=== PATIENT | male | born 1960 | race Caucasian/White ===

== ENCOUNTER 2018-03-21 05:08 | Inpatient (IN) | payer OTHER, MEDICARE ==
[~2018-03-21] VITALS: Ht 165.1 cm; Wt 72.4 kg
[2018-03-21] VITALS (12 sets, daily range): BP systolic 155–172; BP diastolic 74–86; PULSE 86–107; RESP 10–24; TEMP 98.8–99.7; O2SAT 98–100
[2018-03-21] MEDS ORDERED: DIPHTH/TETANUS/ACEL PERTUSSIS (BOOSTER) 0.5 ML VIAL/PFS IM ONE ×2 (05:11→05:14)
[2018-03-21] MEDS ORDERED: ceFAZolin 2 GM in NS 100 ML IV ONE (05:11)
[2018-03-21 05:26] LABS: AUTOMATED NEUTROPHIL # 5.6 TH/MM3 (1.8-7.7); BASOPHIL # 0.1 TH/MM3 (0-0.2); BASOPHIL % 0.8 % (0.0-2.0); EOSINOPHIL # 0.5 TH/MM3 (0-0.4); EOSINOPHIL % 4.8 % (0.0-4.0); HEMATOCRIT 35.8 % (39.0-51.0); HEMOGLOBIN 11.9 GM/DL (13.0-17.0); LYMPH % 26.6 % (9.0-44.0); LYMPHOCYTE # 2.5 TH/MM3 (1.0-4.8); MEAN CELL VOLUME 89.6 FL (80.0-100.0); MEAN CORPUSCULAR HEMOGLOBIN 29.7 PG (27.0-34.0); MEAN CORPUSCULAR HGB CONC 33.1 % (32.0-36.0); MEAN PLATELET VOLUME 7.5 FL (7.0-11.0); MONOCYTE # 0.7 TH/MM3 (0-0.9); NEUT % 59.8 % (16.0-70.0); PLATELET COUNT 217 TH/MM3 (150-450); RED BLOOD COUNT 3.99 MIL/MM3 (4.50-5.90); RED CELL DISTRIBUTION WIDTH 13.8 % (11.6-17.2); WHITE BLOOD COUNT 9.3 TH/MM3 (4.0-11.0)
[2018-03-21 05:37] LABS: INTERNATIONAL NORMALIZED RATIO 1.1 RATIO; PROTHROMBIN TIME - PATIENT 11.5 SEC (9.8-11.6)
[2018-03-21] MEDS ORDERED: IOHEXOL 350 MG/ML 10 ML VIAL (for RAD DIAG) IVCONTRAST ONE (05:44)
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
[2018-03-21] MEDS ORDERED: HYDROmorphone HCL PF 2 MG/ML VIAL IV PUSH ONE (06:45)
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
[2018-03-21] MEDS: SODIUM CHLOR 0.9% 1000 ML INJ 1,000 ML IV SCH ×5 (07:00→16:45)
[2018-03-21] MEDS ORDERED: NURSING INFORMATION XX SCH (08:15)
[2018-03-21] MEDS ORDERED: CHLORHEXIDINE GLUCONATE 2 % 1 PACK (2 CLOTHS) TOP PRN (08:15)
[2018-03-21] MEDS ORDERED: ONDANSETRON ODT 4 MG TAB PO PRN (08:15)
[2018-03-21] MEDS ORDERED: ENALAPRILAT 1.25 MG/ML VIAL IV PUSH PRN (08:15)
[2018-03-21] MEDS ORDERED: ACETAMINOPHEN 325 MG TAB PO PRN (08:15)
[2018-03-21] MEDS: MORPHINE SULFATE 4 MG/ML INJ IV PUSH PRN ×3 (08:45→21:35)
[2018-03-21] MEDS: PANTOPRAZOLE SODIUM 40 MG VIAL IVP SCH (09:00)
[2018-03-21] MEDS: BACITRACIN TOP OINT 15 GM TUBE TOP SCH ×2 (09:00→20:53)
[2018-03-21] MEDS: DOCUSATE SODIUM 50 MG/SENNA 8.6 MG TAB PO SCH ×2 (09:00→19:31)
[2018-03-21] MEDS: DEXT 5%-NACL 0.9% 1000 ML INJ 1,000 ML IV SCH ×3 (09:05→14:54)
[2018-03-21] MEDS ORDERED: GENTAMICIN SULFATE 80 MG/2 ML VIAL ONE (09:13)
[2018-03-21] MEDS ORDERED: POTASSIUM CHLOR 40 MEQ PREMIX 100 ML IV PRN ×2 (09:15)
[2018-03-21] MEDS ORDERED: INSULIN HUMAN REGULAR 1,000 UNITS/10 ML VIAL IV PUSH ONE (09:15)
[2018-03-21] MEDS ORDERED: SODIUM BICARBONATE 8.4% SOLN 50 MEQ/50 ML VIAL IV PUSH PRN ×2 (09:15)
[2018-03-21] MEDS ORDERED: SODIUM PHOSPHATE INJ 15 MMOL in SODIUM CHLORIDE 0.9% INJ 100 ML IV PRN (09:15)
[2018-03-21] MEDS ORDERED: INSULIN REGULAR (IV INFUSION) 100 UNITS in SODIUM CHLORIDE 0.9% INJ 99 ML IV PRN (09:15)
[2018-03-21] MEDS ORDERED: POTASSIUM CHLOR 20 MEQ PREMIX 100 ML IV PRN ×6 (09:15)
[2018-03-21] MEDS ORDERED: INSULIN REGULAR 100 UNITS in NS 100 ML IV SCH (09:30)
[2018-03-21] MEDS ORDERED: ceFAZolin INJ 1,000 MG VIAL ONE (09:45)
[2018-03-21] MEDS ORDERED: VANCOMYCIN HCL 1000 MG VIAL ONE (09:45)
[2018-03-21] MEDS: INSULIN REGULAR (IV INFUSION) 100 UNITS in SODIUM CHLORIDE 0.9% INJ 99 ML IV PRN ×2 (09:45→10:45)
[2018-03-21] MEDS ORDERED: SODIUM CHLOR 0.9% 250 ML INJ 250 ML ONE (09:45)
[2018-03-21] MEDS ORDERED: *morphine SULFATE 4 MG/ML PERIprocedure ONLY ONE ×2 (10:38→11:28)
--- NOTE | 2018-03-21 11:17 | PD.ORT.PN ---
Subjective Subjective Remarks Patient is in PACU and blood sugars are over 600. He is in extreme risk for surgery and anesthesia feels that he may not survive surgery with his unstable sugars. He has skin tenting in the long leg splint. We will re-splint to relieve pressure from the skin. We will plan on surgery this weekend with Dr. Melton Objective Vitals Vital Signs Date Time Temp Pulse Resp B/P (MAP) Pulse Ox O2 Delivery O2 Flow Rate FiO2 03/21/18 10:28 100 Room Air 03/21/18 10:21 99 03/21/18 08:13 03/21/18 07:29 106 22 157/81 (106) 98 Room Air 03/21/18 06:49 106 20 159/82 (107) 98 Room Air 03/21/18 05:55 98 18 172/86 (114) 100 Nasal Cannula 2.00 03/21/18 05:50 100 Nasal Cannula 2.00 I/O 03/20/18 03/20/18 03/20/18 03/21/18 03/21/18 03/21/18 07:00 15:00 23:00 07:00 15:00 23:00 Intake Total 100 ml 2000 ml Output Total 300 ml Balance 100 ml 1700 ml Intake IV Total 100 ml 2000 ml Output Urine Total 300 ml Result Diagram: 03/21/18509 Other Results Laboratory Tests Test 03/21/18 05:10 Prothromb Time International Ratio 1.1 RATIO Prothrombin Time 11.5 SEC (9.8-11.6) Imaging Last 24 hours Impressions Pelvis X-Ray 03/21/18510 Signed Impressions: Service Date/Time: Wednesday, March 21, 2018 05:08 - CONCLUSION: Questionable left superior pubic ramus fracture. Joe Roldan Jr., MD Maxillofacial CT 03/21/18510 Signed Impressions: Service Date/Time: Wednesday, March 21, 2018 05:20 - CONCLUSION: 1. Multiple fractures involve the nasal bones, nasal septum, and maxillary structures as detailed above. Joe Roldan Jr., MD Head CT 03/21/18510 Signed Impressions: Service Date/Time: Wednesday, March 21, 2018 05:20 - CONCLUSION: 1. See the CT of the facial bones reported separately. 2. No acute intracranial abnormality. Joe Roldan Jr., MD Chest X-Ray 03/21/18510 Signed Impressions: Service Date/Time: Wednesday, March 21, 2018 05:08 - CONCLUSION: Normal examination. Joe Roldan Jr., MD Chest CT 03/21/18 0511 Signed Impressions: Service Date/Time: Wednesday, March 21, 2018 05:31 - CONCLUSION: 1. Left-sided rib fractures. No pneumothorax. 2. No acute intrathoracic abnormality. Joe Roldan Jr., MD Cervical Spine CT 03/21/18 05 Signed Impressions: Service Date/Time: Wednesday, March 21, 2018 05:20 - CONCLUSION: 1. No fracture or dislocation. 2. Disc osteophyte complex at C5-C6 causing central canal narrowing and neural foraminal narrowing. Joe Roldan Jr., MD Abdomen/Pelvis CT 03/21/18 0511 Signed Impressions: Service Date/Time: Wednesday, March 21, 2018 05:31 - CONCLUSION: 1. See the CT of the thorax dictated separately. 2. No acute abnormality involving the abdomen or pelvis. 3. No pelvic fracture observed. Joe Roldan Jr., MD Tibia/Fibula X-Ray 03/21/18 0000 Signed Impressions: Service Date/Time: Wednesday, March 21, 2018 05:08 - CONCLUSION: Fractures of the tibia and fibula as detailed above. Joe Roldan Jr., MD Objective Remarks Left lower extremity: Skin is intact with skin tenting. He has intact sensation distally and is able to move all his toes appropriately. Compartments are soft and has intact distal pulses Assessment & Plan Assessment and Plan 1) Left Distal Tib/Fib Fx - Due to significant elevated blood sugars and risks with surgery surgery will be postponed today. With anesthesia's assistance patient was given propofol and has light sedation. He is resplinted with a posterior and sugar tong splint. Postreduction x-rays were ordered. He will continue to be nonweightbearing and will plan on surgery either Saturday or Saturday with Dr. Melton. N.p.o. after midnight Nonweightbearing left lower extremity Rohith Infante Jr. March 21, 2018 11:17
[2018-03-21 11:27] LABS: BILIRUBIN, URINE NEG (NEG); BLOOD, URINE NEG (NEG); GLUCOSE,URINE 1000 mg/dL (NEG); KETONE, URINE NEG (NEG); NITRITE,URINE NEG (NEG); PH, URINE 6.5 (5.0-8.5); URINE COLOR LIGHT-YELLOW (YELLW/STRAW); URINE LEUKOCYTE ESTERASE NEG (NEG)
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
--- NOTE | 2018-03-21 12:30 | RADRPT ---
EXAM DATE/TIME: 03/21/2018 12:02 [facility] COMPARISON: TIBIA/FIBULA LEFT (AP/LAT), March 21, 2018, 5:08. INDICATIONS : Post reduction. MEDICAL HISTORY : Non-responsive. SURGICAL HISTORY : Non-responsive. ENCOUNTER: Subsequent ACUITY: 1 day PAIN SCORE: 8/10 LOCATION: Left Tibfib. FINDINGS: Two view examination of the left tibia is obtained status post reduction. There is continued displace ment of the midshaft of the fibula and distal fibula. There is persistent displacement of the distal tibia fracture. Patient is within a splint. CONCLUSION: Continued displacement of the fibula/tibial fractures. Arturo Jorgensen MD on March 21, 2018 at 12:28 Board Certified Radiologist. This report was verified electronically.
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
[2018-03-21 13:25] LABS: ALBUMIN 3.1 GM/DL (3.4-5.0); ALKALINE PHOSPHATASE 197 U/L (45-117); AST (GOT) 120 U/L (15-37); BLOOD UREA NITROGEN 11 MG/DL (7-18); CREATININE 1.07 MG/DL (0.60-1.30); GLOMERULAR FILTRATION RATE 71 ML/MIN (>89); GLUCOSE,RANDOM 289 MG/DL (74-106); MAGNESIUM 1.8 MG/DL (1.5-2.5); TOTAL PROTEIN 5.9 GM/DL (6.4-8.2)
[2018-03-21 13:26] LABS: ALT (GPT) 94 U/L (12-78); BICARBONATE 24.6 MEQ/L (21.0-32.0); CHLORIDE 111 MEQ/L (98-107); SODIUM (NA) 145 MEQ/L (136-145); TOTAL BILIRUBIN ADULT 0.2 MG/DL (0.2-1.0)
[2018-03-21 16:14] LABS: BICARBONATE 24.8 MEQ/L (21.0-32.0); CALCIUM 7.8 MG/DL (8.5-10.1); CREATININE 0.79 MG/DL (0.60-1.30); MAGNESIUM 1.9 MG/DL (1.5-2.5); PHOSPHORUS 2.2 MG/DL (2.5-4.9)
[2018-03-21] MEDS ORDERED: PLEASE DISCONTINUE PREVIOUS SUPPLEMENTAL SCALE INSULIN ORDERS ONE (16:45)
[2018-03-21] MEDS: MEDIUM DOSE INSULIN NOVOLOG SUPPLEMENTAL SCALE SQ SCH ×2 (17:00→20:53)
[2018-03-21] MEDS ORDERED: GLUCAGON 1 MG/ML VIAL OTHER PRN (17:00)
[2018-03-21] MEDS ORDERED: DEXTROSE 50% IN WATER 50 ML VIAL(D50) IV PUSH PRN (17:00)
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
[2018-03-22] VITALS (8 sets, daily range): BP systolic 153–171; BP diastolic 74–81; PULSE 82–98; RESP 13–23; TEMP 98.1–100; O2SAT 96–100
[2018-03-22] MEDS: SODIUM CHLOR 0.9% 1000 ML INJ 1,000 ML IV SCH ×2 (03:35→17:55)
[2018-03-22] MEDS ORDERED: CHLORHEXIDINE GLUCONATE 2 % 1 PACK (2 CLOTHS) TOP SCH (04:00)
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
[2018-03-22 05:33] LABS: AUTOMATED NEUTROPHIL # 6.2 TH/MM3 (1.8-7.7); BASOPHIL % 0.5 % (0.0-2.0); EOSINOPHIL # 0.2 TH/MM3 (0-0.4); HEMATOCRIT 32.4 % (39.0-51.0); HEMOGLOBIN 11.2 GM/DL (13.0-17.0); LYMPH % 15.3 % (9.0-44.0); LYMPHOCYTE # 1.3 TH/MM3 (1.0-4.8); MEAN CORPUSCULAR HEMOGLOBIN 30.1 PG (27.0-34.0); MEAN CORPUSCULAR HGB CONC 34.6 % (32.0-36.0); MEAN PLATELET VOLUME 7.8 FL (7.0-11.0); MONO % 11.2 % (0.0-8.0); PLATELET COUNT 176 TH/MM3 (150-450); RED BLOOD COUNT 3.72 MIL/MM3 (4.50-5.90); RED CELL DISTRIBUTION WIDTH 13.9 % (11.6-17.2); WHITE BLOOD COUNT 8.7 TH/MM3 (4.0-11.0)
[2018-03-22 05:55] LABS: BICARBONATE 23.8 MEQ/L (21.0-32.0); CALCIUM 7.9 MG/DL (8.5-10.1); CREATININE 0.71 MG/DL (0.60-1.30); MAGNESIUM 1.7 MG/DL (1.5-2.5)
[2018-03-22 05:56] LABS: PHOSPHORUS 2.2 MG/DL (2.5-4.9)
[2018-03-22] MEDS: MEDIUM DOSE INSULIN NOVOLOG SUPPLEMENTAL SCALE SQ SCH ×4 (08:00→20:06)
[2018-03-22] MEDS: PANTOPRAZOLE SODIUM 40 MG VIAL IVP SCH (08:09)
[2018-03-22] MEDS ORDERED: VANCOMYCIN HCL 1000 MG VIAL ONE (08:40)
[2018-03-22] MEDS ORDERED: ceFAZolin INJ 1,000 MG VIAL ONE (08:40)
[2018-03-22] MEDS ORDERED: GENTAMICIN SULFATE 80 MG/2 ML VIAL ONE (08:41)
[2018-03-22] MEDS ORDERED: SODIUM CHLOR 0.9% 250 ML INJ 250 ML ONE (08:41)
[2018-03-22] MEDS: BACITRACIN TOP OINT 15 GM TUBE TOP SCH ×2 (09:00→20:07)
[2018-03-22] MEDS: DOCUSATE SODIUM 50 MG/SENNA 8.6 MG TAB PO SCH ×2 (09:00→19:51)
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
--- NOTE | 2018-03-22 11:15 | PD.OP ---
Operative Report Preoperative Diagnosis: (1) Closed fracture of shaft of left tibia and fibula Postoperative Diagnosis: (1) Closed fracture of shaft of left tibia and fibula Procedure: Left Tibia IM Rodding and Fibula Shaft ORIF with Plate and Screws Anesthesia: General Surgeon: Dipak Melton MD Water Jet Operator(s): Pete MCDOWELL Operation and Findings: see dictation Dipak Melton MD March 22, 2018 11:15
[2018-03-22] MEDS ORDERED: *morphine SULFATE 4 MG/ML PERIprocedure ONLY ONE ×2 (11:40→12:09)
[2018-03-22] MEDS ORDERED: *MEPERIDINE 25 MG INJ VIAL PERIprocedural Use ONLY ONE (11:44)
[2018-03-22] MEDS ORDERED: DO NOT ADM ANY ANTICOAGULANT DRUGS PRN (11:45)
[2018-03-22] MEDS ORDERED: LIDOCAINE HCL 1% PF 5 ML SYRINGE OTHER ONE (12:00)
[2018-03-22] MEDS ORDERED: DEXAMETHASONE SOD PHOS 4 MG/ML VIAL IV ONE (12:00)
[2018-03-22] MEDS ORDERED: PHENYLEPH/NS 1000 MCG/10 ML SYR IV ONE (12:00)
[2018-03-22] MEDS ORDERED: ONDANSETRON HCL 4 MG/2 ML VIAL IV PUSH ONE (12:00)
[2018-03-22] MEDS ORDERED: PROPOFOL 200 MG/20 ML AMP IV ONE (12:00)
[2018-03-22] MEDS ORDERED: ROCURONIUM INJ 50 MG/5 ML SYRINGE IV PUSH ONE (12:00)
[2018-03-22] MEDS ORDERED: GLYCOPYRROLATE 1 MG/5 ML SYRINGE IV PUSH ONE (12:00)
[2018-03-22] MEDS ORDERED: NEOSTIGMINE 5 MG/5 ML SYRINGE IV PUSH ONE (12:00)
[2018-03-22] MEDS ORDERED: LACTATED RINGER'S 1000 ML INJ 1,000 ML IV ONE (12:00)
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
--- NOTE | 2018-03-22 13:44 | EKG ---
Date Performed: 03/21/2018 Time Performed: 22:20:25 PTAGE: 57 years EKG: Sinus rhythm NORMAL ECG NO PREVIOUS TRACING DOCTOR: Emmett Hernández Interpretating Date/Time 03/22/2018 13:42:15
[2018-03-22] MEDS: MORPHINE SULFATE 4 MG/ML INJ IV PUSH PRN ×3 (14:14→21:09)
[2018-03-22] MEDS ORDERED: POTASSIUM PHOSPHATE MONOBASIC 500 MG TAB PO ONE (15:00)
[2018-03-22] MEDS ORDERED: ENALAPRILAT 2.5 MG/2 ML VIAL IV PUSH PRN (15:15)
--- NOTE | 2018-03-22 15:26 | RADRPT ---
EXAM DATE/TIME: 03/22/2018 10:43 [facility] COMPARISON: TIBIA/FIBULA LEFT (AP/LAT), March 21, 2018, 12:02. INDICATIONS : ORIF left tib/fib. MEDICAL HISTORY : Unobtainable. SURGICAL HISTORY : Unobtainable. ENCOUNTER: Initial ACUITY: 1 day PAIN SCORE: Non-responsive. LOCATION: Left Tib/fib. FINDINGS: Intramedullary sae and screw fixation of the distal comminuted tibial fracture. Hardware appears well -positioned with near-anatomic alignment. There has also been plate and screw fixation of the distal fibula. CONCLUSION: 1. Left tibial and fibular fixation, as above. Lefty Daniel MD on March 22, 2018 at 15:23 Board Certified Radiologist. This report was verified electronically.
[2018-03-22] MEDS: POLYETHYLENE GLYCOL 17 GM PKG PO SCH (15:30)
[2018-03-22] MEDS: LIDOCAINE HCL 5% PATCH T-DERMAL SCH (15:56)
[2018-03-22] MEDS: METHOCARBAMOL 500 MG TAB PO SCH ×2 (15:56→21:09)
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
[2018-03-22] MEDS: ENOXAPARIN SODIUM 30 MG/0.3 ML SYRINGE SQ SCH (17:54)
[2018-03-22] MEDS ORDERED: METF500T PO (19:36)
[2018-03-22] MEDS ORDERED: ADDE30TA PO (19:36)
[2018-03-22] MEDS ORDERED: METH10TA PO (19:36)
[2018-03-22] MEDS ORDERED: PERI PO (20:04)
[2018-03-22] MEDS: RESP: ALBUTEROL 2.5 MG/IPRATROPIUM 0.5 MG NEB (SCH) NEB (20:24)
[2018-03-22] MEDS ORDERED: HYDROmorphone HCL PF 0.5 MG/0.5 ML SYRINGE IV ONE (23:30)
[2018-03-23] VITALS (9 sets, daily range): BP systolic 133–166; BP diastolic 70–86; PULSE 95–110; RESP 18–20; TEMP 98.1–100.4; O2SAT 96–99
[2018-03-23] MEDS: MORPHINE SULFATE 4 MG/ML INJ IV PUSH PRN ×5 (01:38→17:35)
[2018-03-23] MEDS: ENOXAPARIN SODIUM 30 MG/0.3 ML SYRINGE SQ SCH ×2 (04:50→17:00)
[2018-03-23] MEDS: METHOCARBAMOL 500 MG TAB PO SCH ×3 (06:04→21:31)
[2018-03-23] MEDS: SODIUM CHLOR 0.9% 1000 ML INJ 1,000 ML IV SCH ×2 (06:15→18:45)
--- NOTE | 2018-03-23 06:46 | RADRPT ---
EXAM DATE/TIME: 03/23/2018 06:04 [facility] COMPARISON: CT THORAX W CONTRAST, March 21, 2018, 5:31. INDICATIONS : Pulmonary contusion. MEDICAL HISTORY : None. SURGICAL HISTORY : None. ENCOUNTER: Subsequent ACUITY: 1 day PAIN SCORE: Non-responsive. LOCATION: Bilateral chest FINDINGS: A single view of the chest demonstrates the lungs to be symmetrically aerated without evidence of mas s, infiltrate or effusion. The cardiomediastinal contours are unremarkable. CONCLUSION: 1. No active disease. Eric Bajwa MD on March 23, 2018 at 6:44 Board Certified Radiologist. This report was verified electronically.
[2018-03-23 07:14] LABS: BICARBONATE 20.4 MEQ/L (21.0-32.0); CALCIUM 7.9 MG/DL (8.5-10.1); CREATININE 0.72 MG/DL (0.60-1.30)
[2018-03-23 07:23] LABS: BASOPHIL % 0.2 % (0.0-2.0); EOSINOPHIL % 0.3 % (0.0-4.0); HEMATOCRIT 28.6 % (39.0-51.0); HEMOGLOBIN 9.7 GM/DL (13.0-17.0); LYMPH % 11.7 % (9.0-44.0); LYMPHOCYTE # 1.4 TH/MM3 (1.0-4.8); MEAN CELL VOLUME 88.2 FL (80.0-100.0); MEAN CORPUSCULAR HEMOGLOBIN 29.8 PG (27.0-34.0); MEAN CORPUSCULAR HGB CONC 33.8 % (32.0-36.0); MONO % 12.4 % (0.0-8.0); MONOCYTE # 1.5 TH/MM3 (0-0.9); NEUT % 75.4 % (16.0-70.0); PLATELET COUNT 165 TH/MM3 (150-450); RED BLOOD COUNT 3.25 MIL/MM3 (4.50-5.90); RED CELL DISTRIBUTION WIDTH 13.7 % (11.6-17.2)
[2018-03-23] MEDS: POLYETHYLENE GLYCOL 17 GM PKG PO SCH (08:01)
[2018-03-23] MEDS: LIDOCAINE HCL 5% PATCH T-DERMAL SCH (08:02)
[2018-03-23] MEDS: BACITRACIN TOP OINT 15 GM TUBE TOP SCH ×2 (08:02→21:31)
[2018-03-23] MEDS: RESP: ALBUTEROL 2.5 MG/IPRATROPIUM 0.5 MG NEB (SCH) NEB ×4 (08:07→19:43)
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
[2018-03-23] MEDS: MEDIUM DOSE INSULIN NOVOLOG SUPPLEMENTAL SCALE SQ SCH ×4 (08:14→21:30)
[2018-03-23] MEDS: DOCUSATE SODIUM 50 MG/SENNA 8.6 MG TAB PO SCH ×2 (08:14→21:29)
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
[2018-03-23] MEDS ORDERED: ENOXAPARIN SODIUM 30 MG/0.3 ML SYRINGE SQ SCH (09:00)
[2018-03-23] MEDS: INSULIN DETEMIR 100 UNITS/ML VIAL SQ SCH ×2 (09:00→21:30)
[2018-03-23] MEDS: GABAPENTIN 300 MG CAP PO SCH ×3 (10:00→17:00)
--- NOTE | 2018-03-23 11:50 | PD.ORT.PN ---
Subjective Subjective Remarks Patient c/o LLE pain. PT at bedside. Objective Vitals Vital Signs Date Time Temp Pulse Resp B/P (MAP) Pulse Ox O2 Delivery O2 Flow Rate FiO2 03/23/18 08:07 97 21 03/23/18 08:00 98.6 106 20 160/86 (110) 98 03/23/18 04:55 18 03/23/18 04:47 18 03/23/18 03:40 99.4 108 18 166/85 (112) 99 03/23/18 00:00 100.4 110 18 159/79 (105) 97 03/22/18 20:30 96 Nasal Cannula 2.00 03/22/18 20:12 Nasal Cannula 2.00 03/22/18 20:00 99.7 98 18 153/77 (102) 100 03/22/18 16:00 98.1 90 20 171/81 (111) 98 03/22/18 12:30 97.8 84 20 159/83 (108) 94 Nasal Cannula 2 03/22/18 12:15 88 20 158/84 (108) 96 Nasal Cannula 2 03/22/18 12:00 82 20 157/80 (105) 96 Nasal Cannula 2 I/O 03/22/18 03/22/18 03/22/18 03/23/18 03/23/18 03/23/18 07:00 15:00 23:00 07:00 15:00 23:00 Intake Total 120 ml 1200 ml 1000 ml 360 ml Output Total 1300 ml 900 ml 1050 ml 1575 ml Balance -1180 ml 300 ml -50 ml -1215 ml Intake Oral 120 ml 360 ml IV Total 1000 ml Other 1200 ml Output Urine Total 1300 ml 850 ml 1050 ml 1575 ml Estimated Blood Loss 50 ml # Bowel Movements 0 0 Result Diagram: 03/23/18 0500 03/23/18 0500 Imaging Last 24 hours Impressions Pelvis X-Ray 03/21/18510 Signed Impressions: Service Date/Time: Wednesday, March 21, 2018 05:08 - CONCLUSION: Questionable left superior pubic ramus fracture. Joe Roldan Jr., MD Maxillofacial CT 03/21/18510 Signed Impressions: Service Date/Time: Wednesday, March 21, 2018 05:20 - CONCLUSION: 1. Multiple fractures involve the nasal bones, nasal septum, and maxillary structures as detailed above. Joe Roldan Jr., MD Head CT 03/21/18510 Signed Impressions: Service Date/Time: Wednesday, March 21, 2018 05:20 - CONCLUSION: 1. See the CT of the facial bones reported separately. 2. No acute intracranial abnormality. Joe Roldan Jr., MD Chest X-Ray 03/21/18510 Signed Impressions: Service Date/Time: Wednesday, March 21, 2018 05:08 - CONCLUSION: Normal examination. Joe Roldan Jr., MD Chest CT 03/21/18510 Signed Impressions: Service Date/Time: Wednesday, March 21, 2018 05:31 - CONCLUSION: 1. Left-sided rib fractures. No pneumothorax. 2. No acute intrathoracic abnormality. Joe Roldan Jr., MD Cervical Spine CT 03/21/18510 Signed Impressions: Service Date/Time: Wednesday, March 21, 2018 05:20 - CONCLUSION: 1. No fracture or dislocation. 2. Disc osteophyte complex at C5-C6 causing central canal narrowing and neural foraminal narrowing. Joe Roldan Jr., MD Abdomen/Pelvis CT 03/21/18510 Signed Impressions: Service Date/Time: Wednesday, March 21, 2018 05:31 - CONCLUSION: 1. See the CT of the thorax dictated separately. 2. No acute abnormality involving the abdomen or pelvis. 3. No pelvic fracture observed. Joe Roldan Jr., MD Tibia/Fibula X-Ray 03/21/18 0000 Signed Impressions: Service Date/Time: Wednesday, March 21, 2018 05:08 - CONCLUSION: Fractures of the tibia and fibula as detailed above. Joe Roldan Jr., MD Objective Remarks Left lower extremity: splint intact C/D/I good movement of toes +sensation Assessment & Plan Assessment and Plan POD #1 Left Tibia IM Rodding and Left Fibula ORIF Pain management Physical therapy - TTWB Splint in place D/C planning - anticipating SNF Monitor Pete Lorenzo March 23, 2018 11:50
[2018-03-23] MEDS ORDERED: PILL SPLITTER OTHER PRN (12:30)
[2018-03-23] MEDS: LISINOPRIL 5 MG TAB PO SCH (14:09)
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
[2018-03-23] MEDS: FAMOTIDINE 20 MG TAB PO SCH (21:29)
[2018-03-24] MEDS: MORPHINE SULFATE 4 MG/ML INJ IV PUSH PRN ×3 (01:35→16:03)
[2018-03-24 03:00] VITALS: BP 160/75; PULSE 100; RESP 19; TEMP 99; O2SAT 98
[2018-03-24] MEDS: METHOCARBAMOL 500 MG TAB PO SCH ×3 (05:40→21:43)
[2018-03-24] MEDS: ENOXAPARIN SODIUM 30 MG/0.3 ML SYRINGE SQ SCH ×2 (05:41→16:03)
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
[2018-03-24] MEDS: RESP: ALBUTEROL 2.5 MG/IPRATROPIUM 0.5 MG NEB (SCH) NEB ×4 (07:41→19:38)
[2018-03-24 08:00] VITALS: BP 165/83; PULSE 95; RESP 19; TEMP 99; O2SAT 98
[2018-03-24] MEDS ORDERED: METHADONE HCL 10 MG TAB PO SCH (09:00)
[2018-03-24] MEDS: INSULIN DETEMIR 100 UNITS/ML VIAL SQ SCH ×2 (09:00→21:46)
[2018-03-24] MEDS: FAMOTIDINE 20 MG TAB PO SCH ×2 (10:01→20:18)
[2018-03-24] MEDS: GABAPENTIN 300 MG CAP PO SCH ×3 (10:01→16:02)
[2018-03-24] MEDS: DOCUSATE SODIUM 50 MG/SENNA 8.6 MG TAB PO SCH ×2 (10:01→20:18)
[2018-03-24] MEDS: LISINOPRIL 5 MG TAB PO SCH (10:02)
[2018-03-24] MEDS: LIDOCAINE HCL 5% PATCH T-DERMAL SCH (10:03)
[2018-03-24] MEDS: POLYETHYLENE GLYCOL 17 GM PKG PO SCH (10:03)
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
[2018-03-24 12:00] VITALS: BP 147/79; PULSE 99; RESP 19; TEMP 97.6; O2SAT 97
[2018-03-24] MEDS: MEDIUM DOSE INSULIN NOVOLOG SUPPLEMENTAL SCALE SQ SCH ×4 (12:00→21:00)
[2018-03-24] MEDS: BACITRACIN TOP OINT 15 GM TUBE TOP SCH ×2 (12:34→20:20)
--- NOTE | 2018-03-24 13:04 | PD.ORT.PN ---
Subjective Subjective Remarks Patient comfortalbe Objective Vitals Vital Signs Date Time Temp Pulse Resp B/P (MAP) Pulse Ox O2 Delivery O2 Flow Rate FiO2 03/24/18 08:00 99.0 95 19 165/83 (110) 98 03/24/18 03:00 99.0 100 19 160/75 (103) 98 03/23/18 23:10 100.2 101 20 137/70 (92) 97 03/23/18 19:46 96 21 03/23/18 19:28 99.3 100 18 146/76 (99) 96 03/23/18 16:00 98.1 95 18 133/73 (93) 98 I/O 03/23/18 03/23/18 03/23/18 03/24/18 03/24/18 03/24/18 07:00 15:00 23:00 07:00 15:00 23:00 Intake Total 360 ml 456 ml 1180 ml 360 ml Output Total 1575 ml 2250 ml 1000 ml Balance -1215 ml 456 ml -1070 ml -640 ml Intake Oral 360 ml 1180 ml 360 ml IV Total 456 ml Output Urine Total 1575 ml 2250 ml 1000 ml # Bowel Movements 0 0 0 Result Diagram: 03/23/18 0500 03/23/18 0500 Imaging Last 24 hours Impressions Pelvis X-Ray 03/21/18510 Signed Impressions: Service Date/Time: Wednesday, March 21, 2018 05:08 - CONCLUSION: Questionable left superior pubic ramus fracture. Joe Roldan Jr., MD Maxillofacial CT 03/21/18510 Signed Impressions: Service Date/Time: Wednesday, March 21, 2018 05:20 - CONCLUSION: 1. Multiple fractures involve the nasal bones, nasal septum, and maxillary structures as detailed above. Joe Roldan Jr., MD Head CT 03/21/18510 Signed Impressions: Service Date/Time: Wednesday, March 21, 2018 05:20 - CONCLUSION: 1. See the CT of the facial bones reported separately. 2. No acute intracranial abnormality. Joe Roldan Jr., MD Chest X-Ray 03/21/18510 Signed Impressions: Service Date/Time: Wednesday, March 21, 2018 05:08 - CONCLUSION: Normal examination. Joe Roldan Jr., MD Chest CT 03/21/18510 Signed Impressions: Service Date/Time: Wednesday, March 21, 2018 05:31 - CONCLUSION: 1. Left-sided rib fractures. No pneumothorax. 2. No acute intrathoracic abnormality. Joe Roldan Jr., MD Cervical Spine CT 03/21/18 0511 Signed Impressions: Service Date/Time: Wednesday, March 21, 2018 05:20 - CONCLUSION: 1. No fracture or dislocation. 2. Disc osteophyte complex at C5-C6 causing central canal narrowing and neural foraminal narrowing. Joe Roladn Jr., MD Abdomen/Pelvis CT 03/21/18 05 Signed Impressions: Service Date/Time: Wednesday, March 21, 2018 05:31 - CONCLUSION: 1. See the CT of the thorax dictated separately. 2. No acute abnormality involving the abdomen or pelvis. 3. No pelvic fracture observed. Joe Roldan Jr., MD Tibia/Fibula X-Ray 03/21/18 0000 Signed Impressions: Service Date/Time: Wednesday, March 21, 2018 05:08 - CONCLUSION: Fractures of the tibia and fibula as detailed above. Joe Roldan Jr., MD Objective Remarks Left lower extremity: splint intact C/D/I good movement of toes +sensation Assessment & Plan Assessment and Plan POD #2 Left Tibia IM Rodding and Left Fibula ORIF Pain management Physical therapy - TTWB Splint in place D/C planning - anticipating SNF F/U with nurse practitioner in 2 weeks Monitor Dipak Melton MD March 24, 2018 13:04
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
[2018-03-24 16:00] VITALS: BP 129/69; PULSE 101; RESP 18; TEMP 99.4; O2SAT 97
[2018-03-24 19:39] VITALS: O2SAT 97
[2018-03-24 19:46] VITALS: BP 135/67; PULSE 93; RESP 18; TEMP 98.6; O2SAT 99
[2018-03-25 00:15] VITALS: BP 145/82; PULSE 90; RESP 17; TEMP 97.3; O2SAT 97
[2018-03-25 04:00] LABS: AUTOMATED NEUTROPHIL # 5.2 TH/MM3 (1.8-7.7); BASOPHIL % 0.6 % (0.0-2.0); EOSINOPHIL # 0.3 TH/MM3 (0-0.4); EOSINOPHIL % 3.8 % (0.0-4.0); HEMATOCRIT 28.5 % (39.0-51.0); HEMOGLOBIN 9.5 GM/DL (13.0-17.0); LYMPH % 17.8 % (9.0-44.0); LYMPHOCYTE # 1.4 TH/MM3 (1.0-4.8); MEAN CORPUSCULAR HGB CONC 33.3 % (32.0-36.0); MEAN PLATELET VOLUME 7.1 FL (7.0-11.0); MONO % 12.4 % (0.0-8.0); NEUT % 65.4 % (16.0-70.0); PLATELET COUNT 279 TH/MM3 (150-450); RED BLOOD COUNT 3.28 MIL/MM3 (4.50-5.90); RED CELL DISTRIBUTION WIDTH 13.6 % (11.6-17.2); WHITE BLOOD COUNT 7.9 TH/MM3 (4.0-11.0)
[2018-03-25 04:24] LABS: ALBUMIN 2.4 GM/DL (3.4-5.0); AST (GOT) 15 U/L (15-37); BICARBONATE 28.7 MEQ/L (21.0-32.0); BLOOD UREA NITROGEN 16 MG/DL (7-18); CALCIUM 8.5 MG/DL (8.5-10.1); CHLORIDE 103 MEQ/L (98-107); CREATININE 0.74 MG/DL (0.60-1.30); GLOMERULAR FILTRATION RATE 108 ML/MIN (>89); GLUCOSE,RANDOM 147 MG/DL (74-106); SODIUM (NA) 141 MEQ/L (136-145)
[2018-03-25 04:27] LABS: ALKALINE PHOSPHATASE 139 U/L (45-117); ALT (GPT) 36 U/L (12-78); TOTAL BILIRUBIN ADULT 0.4 MG/DL (0.2-1.0); TOTAL PROTEIN 6.1 GM/DL (6.4-8.2)
[2018-03-25] MEDS: METHOCARBAMOL 500 MG TAB PO SCH ×3 (06:00→21:07)
[2018-03-25] MEDS: ENOXAPARIN SODIUM 30 MG/0.3 ML SYRINGE SQ SCH ×2 (06:01→16:33)
[2018-03-25 07:39] VITALS: O2SAT 97
[2018-03-25] MEDS: RESP: ALBUTEROL 2.5 MG/IPRATROPIUM 0.5 MG NEB (SCH) NEB ×4 (07:41→19:24)
[2018-03-25 08:00] VITALS: BP 157/72; PULSE 93; RESP 19; TEMP 98.4; O2SAT 95
[2018-03-25] MEDS: MEDIUM DOSE INSULIN NOVOLOG SUPPLEMENTAL SCALE SQ SCH ×4 (08:00→21:00)
[2018-03-25] MEDS ORDERED: POTASSIUM CHLORIDE 20 MEQ CONTROLLED RELEASE TAB PO ONE (08:00)
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
[2018-03-25] MEDS: BACITRACIN TOP OINT 15 GM TUBE TOP SCH ×2 (09:00→21:07)
[2018-03-25] MEDS: POLYETHYLENE GLYCOL 17 GM PKG PO SCH (09:00)
[2018-03-25] MEDS: DOCUSATE SODIUM 50 MG/SENNA 8.6 MG TAB PO SCH ×2 (10:10→21:06)
[2018-03-25] MEDS: LISINOPRIL 5 MG TAB PO SCH (10:10)
[2018-03-25] MEDS: GABAPENTIN 300 MG CAP PO SCH ×3 (10:10→16:33)
[2018-03-25] MEDS: FAMOTIDINE 20 MG TAB PO SCH ×2 (10:10→21:06)
[2018-03-25] MEDS: MORPHINE SULFATE 4 MG/ML INJ IV PUSH PRN (10:12)
[2018-03-25] MEDS: LIDOCAINE HCL 5% PATCH T-DERMAL SCH (10:13)
[2018-03-25] MEDS: INSULIN DETEMIR 100 UNITS/ML VIAL SQ SCH ×2 (10:14→21:06)
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
[2018-03-25] MEDS ORDERED: LACTULOSE SYRUP 20 GM/30 ML CUP PO SCH (11:45)
[2018-03-25 12:00] VITALS: BP 138/73; PULSE 89; RESP 19; TEMP 98.1; O2SAT 97
[2018-03-25] MEDS: METHADONE HCL 10 MG TAB PO SCH (12:51)
[2018-03-25 15:36] VITALS: O2SAT 98
[2018-03-25] MEDS ORDERED: POTASSIUM CHLORIDE 10 MEQ CAP PO ONE (16:00)
--- NOTE | 2018-03-25 18:43 | PD.ORT.PN ---
Subjective Subjective Remarks Patient comfortalbe Objective Vitals Vital Signs Date Time Temp Pulse Resp B/P (MAP) Pulse Ox O2 Delivery O2 Flow Rate FiO2 03/25/18 15:36 98 21 03/25/18 12:00 98.1 89 19 138/73 (94) 97 03/25/18 08:00 98.4 93 19 157/72 (100) 95 03/25/18 07:39 97 21 03/25/18 00:15 97.3 90 17 145/82 (103) 97 03/24/18 19:46 98.6 93 18 135/67 (89) 99 03/24/18 19:39 97 I/O 03/24/18 03/24/18 03/24/18 03/25/18 03/25/18 03/25/18 07:00 15:00 23:00 07:00 15:00 23:00 Intake Total 360 ml 480 ml Output Total 1000 ml 2530 ml Balance -640 ml -2050 ml Intake Oral 360 ml 480 ml Output Urine Total 1000 ml 2530 ml # Voids 3 # Bowel Movements 0 1 0 Result Diagram: 03/25/18 0320 03/25/18 0320 Imaging Last 24 hours Impressions Pelvis X-Ray 03/21/18510 Signed Impressions: Service Date/Time: Wednesday, March 21, 2018 05:08 - CONCLUSION: Questionable left superior pubic ramus fracture. Joe Roldan Jr., MD Maxillofacial CT 03/21/18510 Signed Impressions: Service Date/Time: Wednesday, March 21, 2018 05:20 - CONCLUSION: 1. Multiple fractures involve the nasal bones, nasal septum, and maxillary structures as detailed above. Joe Roldan Jr., MD Head CT 03/21/18510 Signed Impressions: Service Date/Time: Wednesday, March 21, 2018 05:20 - CONCLUSION: 1. See the CT of the facial bones reported separately. 2. No acute intracranial abnormality. Joe Roldan Jr., MD Chest X-Ray 03/21/18510 Signed Impressions: Service Date/Time: Wednesday, March 21, 2018 05:08 - CONCLUSION: Normal examination. Joe Roldan Jr., MD Chest CT 03/21/18510 Signed Impressions: Service Date/Time: Wednesday, March 21, 2018 05:31 - CONCLUSION: 1. Left-sided rib fractures. No pneumothorax. 2. No acute intrathoracic abnormality. Joe Roldan Jr., MD Cervical Spine CT 03/21/18 0511 Signed Impressions: Service Date/Time: Wednesday, March 21, 2018 05:20 - CONCLUSION: 1. No fracture or dislocation. 2. Disc osteophyte complex at C5-C6 causing central canal narrowing and neural foraminal narrowing. Joe Roldan Jr., MD Abdomen/Pelvis CT 03/21/18 05 Signed Impressions: Service Date/Time: Wednesday, March 21, 2018 05:31 - CONCLUSION: 1. See the CT of the thorax dictated separately. 2. No acute abnormality involving the abdomen or pelvis. 3. No pelvic fracture observed. Joe Roldan Jr., MD Tibia/Fibula X-Ray 03/21/18 0000 Signed Impressions: Service Date/Time: Wednesday, March 21, 2018 05:08 - CONCLUSION: Fractures of the tibia and fibula as detailed above. Joe Roldan Jr., MD Objective Remarks Left lower extremity: splint intact C/D/I good movement of toes +sensation Assessment & Plan Assessment and Plan POD #3 Left Tibia IM Rodding and Left Fibula ORIF Pain management Physical therapy - TTWB Splint in place D/C planning - anticipating SNF F/U with nurse practitioner in 2 weeks Monitor Dipak Melton MD March 25, 2018 18:43
[2018-03-25 20:00] VITALS: BP 118/58; PULSE 92; RESP 20; TEMP 98.4; O2SAT 95
[2018-03-25] MEDS: MAGNESIUM HYDROXIDE SUSP 30 ML CUP PO SCH (21:06)
[2018-03-25] MEDS: SODIUM CHLORIDE 0.9% FLUSH 10 ML FLUSH IV FLUSH PRN (21:07)
[2018-03-26] VITALS: BP 128/74; PULSE 87; RESP 20; TEMP 99.3; O2SAT 96
[2018-03-26] MEDS: ENOXAPARIN SODIUM 30 MG/0.3 ML SYRINGE SQ SCH ×2 (05:26→18:03)
[2018-03-26] MEDS: METHOCARBAMOL 500 MG TAB PO SCH ×3 (05:26→21:20)
[2018-03-26] MEDS: RESP: ALBUTEROL 2.5 MG/IPRATROPIUM 0.5 MG NEB (SCH) NEB ×2 (07:42→11:19)
[2018-03-26 07:44] VITALS: O2SAT 98
[2018-03-26 08:00] VITALS: BP 158/82; PULSE 83; RESP 17; TEMP 98.2; O2SAT 96
[2018-03-26] MEDS: FAMOTIDINE 20 MG TAB PO SCH ×2 (08:33→21:20)
[2018-03-26] MEDS: POLYETHYLENE GLYCOL 17 GM PKG PO SCH (08:34)
[2018-03-26] MEDS: INSULIN DETEMIR 100 UNITS/ML VIAL SQ SCH (08:34)
[2018-03-26] MEDS: DOCUSATE SODIUM 50 MG/SENNA 8.6 MG TAB PO SCH ×2 (08:34→21:20)
[2018-03-26] MEDS: GABAPENTIN 300 MG CAP PO SCH ×3 (08:34→18:03)
[2018-03-26] MEDS: METHADONE HCL 10 MG TAB PO SCH (08:34)
[2018-03-26] MEDS: MAGNESIUM HYDROXIDE SUSP 30 ML CUP PO SCH ×2 (08:35→21:20)
[2018-03-26] MEDS: LISINOPRIL 5 MG TAB PO SCH (08:55)
[2018-03-26] MEDS: MEDIUM DOSE INSULIN NOVOLOG SUPPLEMENTAL SCALE SQ SCH ×4 (08:55→21:00)
[2018-03-26] MEDS: BACITRACIN TOP OINT 15 GM TUBE TOP SCH ×2 (08:56→21:21)
[2018-03-26] MEDS: LIDOCAINE HCL 5% PATCH T-DERMAL SCH (08:56)
[2018-03-26 11:55] VITALS: BP 118/58; PULSE 94; RESP 17; TEMP 98.3; O2SAT 97
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
[2018-03-26] MEDS ORDERED: LIDO1ADH4 T-DERMAL (12:32)
[2018-03-26] MEDS ORDERED: METH500T3 PO (12:32)
[2018-03-26] MEDS ORDERED: NOVO7030P2 SQ (12:32)
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
[2018-03-26] MEDS ORDERED: WALKER WHEELS/F1 MIS (12:34)
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
[2018-03-26 16:00] VITALS: BP 107/56; PULSE 95; RESP 17; TEMP 98.3; O2SAT 96
[2018-03-26] MEDS: INSULIN HUMAN NPH/R 70/30 1,000 UNITS/10 ML VIAL SQ SCH (18:12)
[2018-03-26 20:00] VITALS: BP 106/55; PULSE 100; RESP 20; TEMP 98.3; O2SAT 98
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
[2018-03-26] MEDS ORDERED: WHEEMIS3 (22:12)
[2018-03-27] VITALS (8 sets, daily range): BP systolic 103–143; BP diastolic 57–69; PULSE 74–86; RESP 18–20; TEMP 97.5–98.8; O2SAT 96–98
[2018-03-27] MEDS: ENOXAPARIN SODIUM 30 MG/0.3 ML SYRINGE SQ SCH (04:17)
[2018-03-27] MEDS: METHOCARBAMOL 500 MG TAB PO SCH ×3 (05:08→21:01)
[2018-03-27] MEDS: INSULIN HUMAN NPH/R 70/30 1,000 UNITS/10 ML VIAL SQ SCH ×2 (08:00→17:00)
[2018-03-27] MEDS: MEDIUM DOSE INSULIN NOVOLOG SUPPLEMENTAL SCALE SQ SCH ×4 (08:00→21:02)
[2018-03-27] MEDS: METHADONE HCL 10 MG TAB PO SCH (08:32)
[2018-03-27] MEDS: LIDOCAINE HCL 5% PATCH T-DERMAL SCH (08:33)
[2018-03-27] MEDS: BACITRACIN TOP OINT 15 GM TUBE TOP SCH ×2 (08:33→13:23)
[2018-03-27] MEDS: POLYETHYLENE GLYCOL 17 GM PKG PO SCH (08:43)
[2018-03-27] MEDS: MAGNESIUM HYDROXIDE SUSP 30 ML CUP PO SCH ×2 (08:43→21:00)
[2018-03-27] MEDS: GABAPENTIN 300 MG CAP PO SCH ×3 (09:00→18:09)
[2018-03-27] MEDS: FAMOTIDINE 20 MG TAB PO SCH ×2 (09:00→21:01)
[2018-03-27] MEDS: DOCUSATE SODIUM 50 MG/SENNA 8.6 MG TAB PO SCH ×2 (09:00→21:00)
[2018-03-27] MEDS ORDERED: POTASSIUM CHLORIDE 10 MEQ CONTROLLED RELEASE TAB PO ONE (09:00)
[2018-03-27] MEDS: LISINOPRIL 5 MG TAB PO SCH (09:00)
[2018-03-27] MEDS ORDERED: ACETAMINOPHEN 1000 MG/100 ML 100 ML IV ONE (11:31)
[2018-03-27] MEDS ORDERED: LIDOCAINE 1%/EPINEPHrine 1:100,000 SOLN 20 ML VIAL ONE (11:50)
[2018-03-27] MEDS ORDERED: BUPIVACAINE/EPINEPHRINE 0.75% PF 30 ML VIAL ONE (11:56)
[2018-03-27] MEDS ORDERED: MUPIROCIN 2% OINT 22 GM TUBE ONE (11:57)
[2018-03-27] MEDS ORDERED: OXYMETAZOLINE HCL 0.05% 15 ML NASAL SPRAY ONE (11:57)
[2018-03-27] MEDS ORDERED: INSULIN HUMAN REGULAR 1,000 UNITS/10 ML VIAL ONE (12:17)
[2018-03-27] MEDS ORDERED: ceFAZolin INJ 1,000 MG VIAL IV ONE ×2 (12:47→17:41)
[2018-03-27] MEDS ORDERED: DO NOT ADM ANY ANTICOAGULANT DRUGS PRN (13:13)
[2018-03-27] MEDS ORDERED: MIDAZOLAM HCL 2 MG/2 ML VIAL ONE (13:18)
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
[2018-03-27] MEDS ORDERED: DEXAMETHASONE SOD PHOS 4 MG/ML VIAL IV ONE (17:41)
[2018-03-27] MEDS ORDERED: LIDOCAINE HCL 1% PF 5 ML SYRINGE OTHER ONE (17:41)
[2018-03-27] MEDS ORDERED: PHENYLEPH/NS 1000 MCG/10 ML SYR IV ONE (17:41)
[2018-03-27] MEDS ORDERED: ePHEDrine/NS 25 MG/5 ML SYRINGE IV ONE (17:41)
[2018-03-27] MEDS ORDERED: GLYCOPYRROLATE 1 MG/5 ML SYRINGE IV PUSH ONE (17:41)
[2018-03-27] MEDS ORDERED: NEOSTIGMINE 5 MG/5 ML SYRINGE IV PUSH ONE (17:41)
[2018-03-27] MEDS ORDERED: ROCURONIUM INJ 50 MG/5 ML SYRINGE IV PUSH ONE (17:41)
[2018-03-27] MEDS ORDERED: ONDANSETRON HCL 4 MG/2 ML VIAL IV PUSH ONE (17:41)
[2018-03-27] MEDS ORDERED: PROPOFOL 200 MG/20 ML AMP IV ONE (17:41)
[2018-03-27] MEDS: ceFAZolin 2 GM/DEX PREMIX 50 ML IV SCH (18:09)
[2018-03-27] MEDS: MORPHINE SULFATE 4 MG/ML INJ IV PUSH PRN (23:39)
[2018-03-27] MEDS: SODIUM CHLORIDE 0.9% FLUSH 10 ML FLUSH IV FLUSH PRN (23:40)
[2018-03-28] MEDS: MORPHINE SULFATE 4 MG/ML INJ IV PUSH PRN (00:01)
[2018-03-28] MEDS: SODIUM CHLORIDE 0.9% FLUSH 10 ML FLUSH IV FLUSH PRN (00:01)
[2018-03-28] MEDS: ceFAZolin 2 GM/DEX PREMIX 50 ML IV SCH ×2 (00:27→09:11)
[2018-03-28 03:50] VITALS: BP 118/57; PULSE 76; RESP 18; TEMP 98.2; O2SAT 96
[2018-03-28] MEDS: METHOCARBAMOL 500 MG TAB PO SCH ×2 (05:28→14:14)
[2018-03-28 08:00] VITALS: BP 123/57; PULSE 70; RESP 18; TEMP 98.2; O2SAT 98
[2018-03-28] MEDS ORDERED: INSULIN HUMAN NPH/R 70/30 1,000 UNITS/10 ML VIAL SQ SCH (08:00)
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
[2018-03-28] MEDS: POLYETHYLENE GLYCOL 17 GM PKG PO SCH (09:00)
[2018-03-28] MEDS: LIDOCAINE HCL 5% PATCH T-DERMAL SCH (09:00)
[2018-03-28] MEDS: BACITRACIN TOP OINT 15 GM TUBE TOP SCH (09:00)
[2018-03-28] MEDS: MAGNESIUM HYDROXIDE SUSP 30 ML CUP PO SCH (09:00)
[2018-03-28] MEDS: MEDIUM DOSE INSULIN NOVOLOG SUPPLEMENTAL SCALE SQ SCH ×2 (09:10→12:00)
[2018-03-28] MEDS: METHADONE HCL 10 MG TAB PO SCH (09:12)
[2018-03-28] MEDS: GABAPENTIN 300 MG CAP PO SCH ×2 (09:12→14:14)
[2018-03-28] MEDS: LISINOPRIL 5 MG TAB PO SCH (09:12)
[2018-03-28] MEDS: FAMOTIDINE 20 MG TAB PO SCH (09:12)
[2018-03-28] MEDS: DOCUSATE SODIUM 50 MG/SENNA 8.6 MG TAB PO SCH (09:15)
[2018-03-28 10:15] VITALS: O2SAT 97
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
[2018-03-28] MEDS ORDERED: NOVO7030P2 SQ (11:39)
[2018-03-28 11:46] VITALS: BP 111/71; PULSE 75; RESP 18; TEMP 98.6; O2SAT 98
[2018-03-28] MEDS ORDERED: ENOXAPARIN SODIUM 30 MG/0.3 ML SYRINGE SQ SCH (12:00)
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
[2018-03-28 15:57] VITALS: BP 122/57; PULSE 76; RESP 18; TEMP 98.2; O2SAT 96
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
== END 2018-03-28 17:42 | disposition home or self-care (01) | DRG 957 ==
LOC: NEPI 05:08 → NEDA 06:17 → EDBD 06:17 → N03A 08:06 → N06B 03-22 11:58
PROVIDERS: ADMIT Surgery; ATTEND Surgery
PROC: 0QSKXZZ Reposition Left Fibula, External Approach (ICD-10-PCS; 2018-03-21)
PROC: 0QSHXZZ Reposition Left Tibia, External Approach (ICD-10-PCS; 2018-03-21)
PROC: 2Y41X5Z Packing of Nasal Region using Packing Material (ICD-10-PCS; 2018-03-21)
PROC: 0QSK04Z Reposition Left Fibula with Internal Fixation Device, Open Approach (ICD-10-PCS; 2018-03-22)
PROC: 0QSH06Z Reposition Left Tibia with Intramedullary Internal Fixation Device, Open Approach (ICD-10-PCS; principal; 2018-03-22 09:14)
PROC: 0NSBXZZ Reposition Nasal Bone, External Approach (ICD-10-PCS; 2018-03-27)
DX: S82.252B Displaced comminuted fracture of shaft of left tibia, initial encounter for open fracture type I or II (principal); E11.10 Type 2 diabetes mellitus with ketoacidosis without coma; S27.321A Contusion of lung, unilateral, initial encounter; S22.42XA Multiple fractures of ribs, left side, initial encounter for closed fracture; S82.402B Unspecified fracture of shaft of left fibula, initial encounter for open fracture type I or II; S06.0X9A Concussion with loss of consciousness of unspecified duration, initial encounter; S02.40CA Maxillary fracture, right side, initial encounter for closed fracture; S02.2XXA Fracture of nasal bones, initial encounter for closed fracture; F17.210 Nicotine dependence, cigarettes, uncomplicated; I10 Essential (primary) hypertension; E78.5 Hyperlipidemia, unspecified; H16.213 Exposure keratoconjunctivitis, bilateral; S00.531A Contusion of lip, initial encounter; G89.29 Other chronic pain; M54.9 Dorsalgia, unspecified; V13.4XXA Pedal cycle driver injured in collision with car, pick-up truck or van in traffic accident, initial encounter; Y93.55 Activity, bike riding; Z83.3 Family history of diabetes mellitus; Y92.410 Unspecified street and highway as the place of occurrence of the external cause; Z79.4 Long term (current) use of insulin
CPT/HCPCS: 36600; 70450; 70486; 71045; 71260; 72125; 72128; 72131; 72170; 73590; 74177; 76000; 80048; 80053; 81001; 82010; 82805; 82948; 83036; 83690; 83735; 84100; 85025; 85610; 85730; 86850; 86900; 86901; 90471; 90715; 93005; 94150; 94640; 94664; 94667; 94668; 96374; 99291; C1713; C9113; G0390; J0131; J0690; J1100; J1170; J1580; J1650; J1815; J1817; J2175; J2250; J2270; J2370; J2405; J2710; J3010; J3370; J3480; J7030; J7042; J7050; J7120; Q9967